=== PATIENT | female | born 1985 | race Caucasian/White ===

== ENCOUNTER 2020-03-03 19:08 | Emergency (ER) | payer OTHER ==
[~2020-03-03] VITALS: Ht 152.4 cm; Wt 126.3 kg
--- NOTE | 2020-03-03 19:30 | PHYS DOC ---
Past History Past Medical History: No Pertinent History Past Surgical History: Alcohol Use: None General Adult EDM: Chief Complaint: HEADACHE HPI: HPI: Patient is a 34-year-old female at approximately 8 weeks gestational age by LMP with right-sided headache she describes as throbbing for the past 3 days. Patient states 3 days ago she had a slight headache and laid down for nap, when she woke up the headache was worse. Also complaining of nausea, vomiting, phot ophobia. Denies any history of headaches including with previous pregnancies. She also states she has had worse nausea and vomiting with this and also frequent urination. Denies any abdominal pain, cramping, dysuria, vaginal bleeding or discharge. Took Tylenol 4 hours prior to arrival and drink some caffeine with some improvement of the pain. Denies any vision changes, weakness, paresthesias Review of Systems: Review of Systems: Constitutional: Denies fever or chills Eyes: Denies change in visual acuity HENT: Denies nasal congestion or sore throat, denies ear pain, tinnitus, decreased hearing Respiratory: Denies cough or shortness of breath Cardiovascular: Denies chest pain or edema GI: Denies abdominal pain, bloody stools or diarrhea. But has had nausea and vomiting : Denies dysuria Musculoskeletal: Denies back pain or joint pain Integument: Denies rash Neurologic: Right-sided throbbing headache, but denies focal weakness or sensory changes Endocrine: Denies polyuria or polydipsia Lymphatic: Denies swollen glands Psychiatric: Denies depression or anxiety Current Medications: Current Meds: Current Medications Medications (Trade) Dose Ordered Sig/Judith Start Time Stop Time Status Last Admin Dose Admin Diphenhydramine HCl (Benadryl) 50 mg 1X ONCE 03/03/20 19:30 03/03/20 19:31 UNV Prochlorperazine Edisylate (Compazine) 10 mg 1X ONCE 03/03/20 19:30 03/03/20 19:31 UNV Allergies: Allergies: Allergies Coded Allergies Type Severity Reaction Last Updated Verified Penicillins Allergy Unknown 03/03/20 Yes Physical Exam: PE: Constitutional: Well developed, well nourished, mild distress distress, non- toxic appearance. [] HENT: Normocephalic, atraumatic, bilateral external ears normal, oropharynx moist, no oral exudates, nose normal. [] No tenderness over sinuses Eyes: PERRLA, EOMI, conjunctiva normal, no discharge. [] Neck: Normal range of motion, no tenderness, supple, no stridor. [] Cardiovascular:Heart rate regular rhythm, no murmur [] Lungs & Thorax: Bilateral breath sounds clear to auscultation [] Abdomen: Bowel sounds normal, soft, no tenderness, no masses, no pulsatile masses. [] Skin: Warm, dry, no erythema, no rash. [] Back: No tenderness, no CVA tenderness. [] Extremities: No tenderness, no cyanosis, no clubbing, ROM intact, no edema. [] Neurologic: Alert and oriented X 3, normal motor function, normal sensory function, no focal deficits noted. [] Psychologic: Affect normal, judgement normal, mood normal. [] Current Patient Data: Vital Signs: Vital Signs Date Time Temp Pulse Resp B/P (MAP) Pulse Ox O2 Delivery O2 Flow Rate FiO2 03/03/20 19:10 98.2 76 20 148/105 (119) 100 Room Air EKG: EKG: [] Radiology/Procedures: Radiology/Procedures: CT scan of the head without contrast 03/03/2020 Clinical History: New right-sided headache for 3 days. Technique: Unenhanced, contiguous, 5 mm axial sections were obtained through the head. One or more of the following individualized dose reduction techniques were utilized for this study: 1. Automated exposure control. 2. Adjustment of the mA and/or kV according to patient size. 3. Use of iterative reconstruction technique. Findings: The ventricles and sulci are within normal limits in size and configuration. No area of abnormal attenuation is seen involving the brain parenchyma. No extra-axial fluid collection is noted. No skull fracture is seen. Impression: Negative study.[] Heart Score: Risk Factors: Risk Factors: DM, Current or recent (<one month) smoker, HTN, HLP, family history of CAD, obesity. Risk Scores: Score 0 - 3: 2.5% MACE over next 6 weeks - Discharge Home Score 4 - 6: 20.3% MACE over next 6 weeks - Admit for Clinical Observation Score 7 - 10: 72.7% MACE over next 6 weeks - Early Invasive Strategies Course & Med Decision Making: Course & Med Decision Making Pertinent Labs and Imaging studies reviewed. (See chart for details) Patient feeling much better after medications. Mild hypokalemia, will give 1 dose of potassium emergency department instructed patient to increase potassium in her diet. [] Amina Disclaimer: Amina Disclaimer: This electronic medical record was generated, in whole or in part, using a voice recognition dictation system. Departure Departure: Impression: Primary Impression: Migraine headache Additional Impression: Hypokalemia Disposition: 01 DC HOME SELF CARE/HOMELESS Condition: IMPROVED Referrals: PCP,UNKNOWN (PCP) Patient Instructions: Migraine Headache Scripts Butalb/Acetaminophen/Caffeine ([id number] [id number]) 1 Each Tablet 1 EACH PO PRN Q6-8HRS PRN for MIGRAINE HEADACHE for 5 Days, #10 TAB Prov: CHRIS PONCE MD 03/03/20 Ondansetron (ONDANSETRON ODT) 4 Mg Tab.rapdis 1 TAB PO PRN Q6-8HRS for nausea for 5 Days, #16 TAB Prov: CHRIS PONCE MD 03/03/20 CHRIS PONCE MD Mar 03, 2020 19:30
[2020-03-03] MEDS ORDERED: PROCHLORPERAZINE 10 MG/2 ML VIAL. IV ONE (19:45)
[2020-03-03] MEDS ORDERED: diphenhydrAMINE 50 MG/ML VIAL IVP ONE (19:45)
[2020-03-03] MEDS ORDERED: IV NORMAL SALINE 1,000ML 1,000 ML IV ONE (19:45)
--- NOTE | 2020-03-03 19:56 | RAD ---
CT scan of the head without contrast 03/03/2020 Clinical History: New right-sided headache for 3 days. Technique: Unenhanced, contiguous, 5 mm axial sections were obtained through the head. One or more of the following individualized dose reduction techniques were utilized for this study: 1. Automated exposure control. 2. Adjustment of the mA and/or kV according to patient size. 3. Use of iterative reconstruction technique. Findings: The ventricles and sulci are within normal limits in size and configuration. No area of abnormal attenuation is seen involving the brain parenchyma. No extra-axial fluid collection is noted. No skull fracture is seen. Impression: Negative study. Electronically signed by: Jude Holliday MD (03/03/2020 7:53 PM) [id number]
[2020-03-03 19:57] LABS: BASO # 0.1 x10^3/uL (0.0-0.2); BASO % 2 % (0-3); EOS # 0.1 x10^3/uL (0.0-0.7); EOS % 1 % (0-3); HEMATOCRIT 41.3 % (36.0-47.0); HEMOGLOBIN 13.7 g/dL (12.0-15.5); LYMPH # 2.8 x10^3/uL (1.0-4.8); LYMPH % 28 % (24-48); MEAN CORPUSCULAR HEMOGLOBIN 30 pg (25-35); MEAN CORPUSCULAR HGB CONC 33 g/dL (31-37); MEAN CORPUSCULAR VOLUME 89 fL (79-100); MONO # 0.6 x10^3/uL (0.0-1.1); MONO % 6 % (0-9); NEUT # 6.4 x10^3uL (1.8-7.7); NEUT % 65 % (31-73); PLATELET COUNT 340 x10^3/uL (140-400); RED BLOOD COUNT 4.63 x10^6/uL (3.50-5.40); RED CELL DISTRIBUTION WIDTH 13.1 % (11.5-14.5)
[2020-03-03 19:58] LABS: CALCIUM 9.4 mg/dL (8.5-10.1); CREATININE 0.7 mg/dL (0.6-1.0); GFR 94.7; POTASSIUM 3.2 mmol/L (3.5-5.1)
[2020-03-03 20:04] LABS: ALBUMIN 3.8 g/dL (3.4-5.0); ALBUMIN/GLOBULIN RATIO 0.8 (1.0-1.7); TOTAL BILIRUBIN 0.4 mg/dL (0.2-1.0); TOTAL PROTEIN 8.4 g/dL (6.4-8.2)
[2020-03-03 20:07] LABS: CLARITY,URINE CLEAR; COLOR,URINE YELLOW; GLUCOSE,URINE NEG (NEG)
[2020-03-03 20:08] LABS: BACTERIA,URINE 0 /HPF (0-FEW); BILIRUBIN,URINE NEG (NEG); NITRITE,URINE NEG (NEG); RBC,URINE 0 /HPF (0-2); WBC,URINE 0 /HPF (0-4)
[2020-03-03] MEDS ORDERED: ONDA4TAB12 PO (20:33)
[2020-03-03] MEDS ORDERED: BUTA1TAB23 PO (20:33)
[2020-03-03 20:44] VITALS: BP 115/81
[2020-03-03] MEDS ORDERED: POTASSIUM CHLORIDE 20 MEQ TABLET.ER. PO ONE (20:45)
== END 2020-03-03 20:48 | disposition home or self-care (01) ==
LOC: ER 19:08
DX: O26.891 Other specified pregnancy related conditions, first trimester (principal); G43.909 Migraine, unspecified, not intractable, without status migrainosus; O99.281 Endocrine, nutritional and metabolic diseases complicating pregnancy, first trimester; E87.6 Hypokalemia; Z3A.08 8 weeks gestation of pregnancy; Z88.0 Allergy status to penicillin
CPT/HCPCS: 36415; 70450; 80053; 81001; 81025; 83735; 85025; 96361; 96374; 96375; 99284; J0780; J1200; J7030

== ENCOUNTER 2020-08-25 17:57 | Emergency (ER) | payer OTHER ==
[~2020-08-25] VITALS: Ht 152.4 cm; Wt 59.6 kg
[~2020-08-25 17:57] MED LIST: BUTA1TAB23 PO; ONDA4TAB12 PO
[2020-08-25] MEDS ORDERED: ONDANSETRON PF 4 MG/2 ML VIAL. ONE (18:21)
[2020-08-25] MEDS ORDERED: ONDANSETRON PF 4 MG/2 ML VIAL. IVP ONE (18:30)
--- NOTE | 2020-08-25 18:30 | PHYS DOC ---
Past History Past Medical History: No Pertinent History Past Surgical History: Alcohol Use: None General Adult EDM: Chief Complaint: possible labor HPI: HPI: 34-year-old female who is 32 weeks presents with concern for amniotic fluid leakage. She has been having leakage of clear fluid and some cramping for the last 1-1/2 hours. They called the nurse line who told her to go to the emergency room. The patient is not having any bleeding. The cramps are interm ittent and not severe. She is planning to deliver at [facility]. They did not go there because the nurse line told him to go to the nearest ER. Patient denies fever or chills. Review of Systems: Review of Systems: Constitutional: . Denies fever or chills Eyes: Denies change in visual acuity HENT: Denies nasal congestion or sore throat Respiratory: Denies cough or shortness of breath Cardiovascular: Denies chest pain or edema GI: Intermittent abdominal cramping. Denies nausea, vomiting, bloody stools or diarrhea : Leaking of fluid from the vagina Musculoskeletal: Denies back pain or joint pain Integument: Denies rash Neurologic: Denies headache, focal weakness or sensory changes Endocrine: Denies polyuria or polydipsia Lymphatic: Denies swollen glands Psychiatric: Denies depression or anxiety Allergies: Allergies: Allergies Coded Allergies Type Severity Reaction Last Updated Verified Penicillins Allergy Intermediate 03/03/20 Yes Physical Exam: PE: Constitutional: Well developed, well nourished, no acute distress, non-toxic appearance. [] HENT: Normocephalic, atraumatic, bilateral external ears normal, oropharynx moist, no oral exudates, nose normal. [] Eyes: PERRLA, EOMI, conjunctiva normal, no discharge. [] Neck: Normal range of motion, no tenderness, supple, no stridor. [] Cardiovascular: Heart rate regular rhythm, no murmur [] Lungs & Thorax: Bilateral breath sounds clear to auscultation [] Abdomen: Gravid uterus. Bowel sounds normal, no tenderness, no masses, no pulsatile masses. [] Skin: Warm, dry, no erythema, no rash. [] Back: No tenderness, no CVA tenderness. [] Extremities: No tenderness, no cyanosis, no clubbing, ROM intact, no edema. [] Neurologic: Alert and oriented X 3, normal motor function, normal sensory function, no focal deficits noted. [] Psychologic: Affect normal, judgement normal, mood normal. [] EKG: EKG: [] Radiology/Procedures: Radiology/Procedures: [] Impressions: Exam: Ultrasound OB limited Indication: Vaginal fluid leak, 32 weeks, cramping Technique: Real-time grayscale and color Doppler images of the pelvis were obtained by the department clinical analyst. Comparisons: None FINDINGS: Within the uterus there is a single live intrauterine gestation with heart rate measuring 131 bpm. Fetus is in cephalic position. measurements as follows: BPD: 8.0 corresponding to 32 weeks 1 day Head circumference: 30.1 corresponding to 33 weeks 2 days Abdominal circumference: 27.2 cm corresponding to 31 weeks 2 days Femur length: 6.3 cm corresponding to 32 weeks 4 days Estimated weight: 1870 g with a sonographic gestational age of 32 weeks 2 days Placenta is fundal and appears normal. LUKE measured at 8.6 cm. Cervix is seen and measures approximately 4.4 cm. IMPRESSION: 1. Single live intrauterine gestation with measurements as described above. 2. LUKE measured at 8.6 cm. 3. Cervix appears long and closed on transabdominal imaging measuring 4.4 cm. Electronically signed by: Maxx Reina MD (08/25/2020 9:35 PM) [facility] DICTATED AND SIGNED BY: MAXX REINA MD DATE: 08/25/202132 CC: PEDRO PABLO BONILLA DO; PCP,UNKNOWN ~MTH0 0 Heart Score: C/O Chest Pain: N/A Risk Factors: Risk Factors: DM, Current or recent (<one month) smoker, HTN, HLP, family history of CAD, obesity. Risk Scores: Score 0 - 3: 2.5% MACE over next 6 weeks - Discharge Home Score 4 - 6: 20.3% MACE over next 6 weeks - Admit for Clinical Observation Score 7 - 10: 72.7% MACE over next 6 weeks - Early Invasive Strategies Course & Med Decision Making: Course & Med Decision Making Pertinent Labs and Imaging studies reviewed. (See chart for details) The patient's labs are unremarkable except for some mild anemia. Her urinalysis is negative for infection. We did 2 different nitrazine paper test and they were both negative. This does not appear to be amniotic fluid. Ultrasound does not show a significant complication. See official read for more details. The patient is feeling better. Her wet prep is negative. She is stable for discharge at this time. [] Dragon Disclaimer: Dragon Disclaimer: This electronic medical record was generated, in whole or in part, using a voice recognition dictation system. Departure Departure: Impression: Primary Impression: Qualified Codes: Z3A.32 - 32 weeks gestation of Additional Impression: Vaginal discharge during in third trimester Disposition: 02 SHORT TERM HOSPITAL Condition: STABLE Referrals: PCP,UNKNOWN (PCP) Patient Instructions: - Third Trimester, [id number] PEDRO PABLO BONILLA DO August 25, 2020 18:30
[2020-08-25] MEDS ORDERED: IV NORMAL SALINE 1,000ML 1,000 ML IV ONE (20:00)
[2020-08-25 20:03] LABS: CALCIUM 9.2 mg/dL (8.5-10.1); CREATININE 0.6 mg/dL (0.6-1.0); GFR 113.1; POTASSIUM 3.6 mmol/L (3.5-5.1)
[2020-08-25 20:09] LABS: ALBUMIN 2.7 g/dL (3.4-5.0); ALBUMIN/GLOBULIN RATIO 0.6 (1.0-1.7); BASO # 0.1 x10^3/uL (0.0-0.2); BASO % 1 % (0-3); EOS # 0.1 x10^3/uL (0.0-0.7); EOS % 1 % (0-3); HEMATOCRIT 32.5 % (36.0-47.0); HEMOGLOBIN 10.7 g/dL (12.0-15.5); LYMPH # 2.1 x10^3/uL (1.0-4.8); LYMPH % 21 % (24-48); MEAN CORPUSCULAR HEMOGLOBIN 28 pg (25-35); MEAN CORPUSCULAR HGB CONC 33 g/dL (31-37); MEAN CORPUSCULAR VOLUME 85 fL (79-100); MONO # 0.6 x10^3/uL (0.0-1.1); MONO % 6 % (0-9); NEUT # 7.1 x10^3uL (1.8-7.7); NEUT % 72 % (31-73); PLATELET COUNT 257 x10^3/uL (140-400); RED CELL DISTRIBUTION WIDTH 15.5 % (11.5-14.5); TOTAL BILIRUBIN 0.3 mg/dL (0.2-1.0); TOTAL PROTEIN 7.5 g/dL (6.4-8.2)
[2020-08-25 20:23] LABS: BACTERIA,URINE MOD /HPF (0-FEW); BILIRUBIN,URINE NEG (NEG); CLARITY,URINE HAZY; COLOR,URINE YELLOW; GLUCOSE,URINE NEG (NEG); NITRITE,URINE NEG (NEG); RBC,URINE 0 /HPF (0-2); SQUAMOUS EPITHELIAL CELL,UR MOD /LPF; UROBILINOGEN,URINE 0.2 mg/dL (0.2 mg/dL)
--- NOTE | 2020-08-25 21:37 | RAD ---
Exam: Ultrasound OB limited Indication: Vaginal fluid leak, 32 weeks, cramping Technique: Real-time grayscale and color Doppler images of the pelvis were obtained by the department pharmacy informatics specialist. Comparisons: None FINDINGS: Within the uterus there is a single live intrauterine gestation with heart rate measuring 131 b pm. Fetus is in cephalic position. measurements as follows: BPD: 8.0 corresponding to 32 weeks 1 day Head circumference: 30.1 corresponding to 33 weeks 2 days Abdominal circumference: 27.2 cm corresponding to 31 weeks 2 days Femur length: 6.3 cm corresponding to 32 weeks 4 days Estimated weight: 1870 g with a sonographic gestational age of 32 weeks 2 days Placenta is fundal and appears normal. LUKE measured at 8.6 cm. Cervix is seen and measures approximately 4.4 cm. IMPRESSION: 1. Single live intrauterine gestation with measurements as described above. 2. LUKE measured at 8.6 cm. 3. Cervix appears long and closed on transabdominal imaging measuring 4.4 cm. Electronically signed by: Susie Muhammad MD (08/25/2020 9:35 PM) EVER
[2020-08-25 21:40] VITALS: BP 124/76
== END 2020-08-25 22:10 | disposition home or self-care (01) ==
LOC: ER 17:57
DX: O42.90 Premature rupture of membranes, unspecified as to length of time between rupture and onset of labor, unspecified weeks of gestation (principal); N89.8 Other specified noninflammatory disorders of vagina; Z3A.32 32 weeks gestation of pregnancy; Z88.0 Allergy status to penicillin
CPT/HCPCS: 36415; 76815; 80053; 81001; 85025; 87086; 96361; 96374; 99285; J2405; J7030; Q0111

== ENCOUNTER 2021-05-15 14:26 | Emergency (ER) | payer OTHER ==
[~2021-05-15] VITALS: Ht 152.4 cm; Wt 62.6 kg
[2021-05-15] MEDS ORDERED: ONDANSETRON PF 4 MG/2 ML VIAL. IVP ONE (15:00)
[2021-05-15] MEDS ORDERED: diphenhydrAMINE 50 MG/ML VIAL IVP ONE (15:00)
[2021-05-15] MEDS ORDERED: SUMAtriptan SUCC 6 MG/0.5 ML VIAL SQ ONE (15:00)
[2021-05-15] MEDS ORDERED: KETOROLAC 15 MG/ML VIAL. IVP ONE (15:00)
--- NOTE | 2021-05-15 15:07 | RAD ---
EXAM: CHEST 1 VIEW History: Elevated blood pressure COMPARISON: None available. TECHNIQUE: Single portable radiograph of the chest FINDINGS: The cardiac silhouette is unremarkable. The lungs are clear bilaterally. The costophrenic sulci are clear and well demarcated. . IMPRESSION: No radiographic evidence of an acute cardiopulmonary process. Electronically signed by: Art Rivera MD (05/15/2021 3:04 PM) [id number]
[2021-05-15 15:37] LABS: BASO # 0.1 x10^3/uL (0.0-0.2); BASO % 1 % (0-3); EOS % 0 % (0-3); HEMOGLOBIN 10.7 g/dL (12.0-15.5); LYMPH # 1.6 x10^3/uL (1.0-4.8); LYMPH % 18 % (24-48); MEAN CORPUSCULAR HEMOGLOBIN 24 pg (25-35); MEAN CORPUSCULAR HGB CONC 31 g/dL (31-37); MEAN CORPUSCULAR VOLUME 78 fL (79-100); MONO # 0.4 x10^3/uL (0.0-1.1); MONO % 5 % (0-9); NEUT # 6.9 x10^3uL (1.8-7.7); NEUT % 77 % (31-73); PLATELET COUNT 414 x10^3/uL (140-400); RED CELL DISTRIBUTION WIDTH 19.4 % (11.5-14.5); WHITE BLOOD COUNT 8.9 x10^3/uL (4.0-11.0)
[2021-05-15 15:46] LABS: CALCIUM 8.9 mg/dL (8.5-10.1); CREATININE 0.6 mg/dL (0.6-1.0); GFR 112.5
[2021-05-15 15:52] LABS: ALBUMIN 3.9 g/dL (3.4-5.0); ALBUMIN/GLOBULIN RATIO 0.9 (1.0-1.7); TOTAL BILIRUBIN 0.5 mg/dL (0.2-1.0); TOTAL PROTEIN 8.1 g/dL (6.4-8.2)
[2021-05-15 15:53] LABS: BARBITURATES NEG (NEG); BENZODIAZEPINES NEG (NEG); CANNABINOIDS NEG (NEG); COCAINE NEG (NEG); METHADONE NEG (NEG); OPIATES NEG (NEG); PHENCYCLIDINE NEG (NEG)
--- NOTE | 2021-05-15 15:58 | PHYS DOC ---
Past History Past Medical History: DVT Additional Past Medical Histor: Protein C deficiency Past Surgical History: , Other Additional Past Surgical Histo: DVT REMOVAL RIGHT LEG Alcohol Use: Occasionally General Adult EDM: Chief Complaint: HEADACHE HPI: HPI: Patient is a 35 year old female with PMHx of migraines and protein c deficiency who presents with migraine that began yesterday. She states she also has "tingling" in her arms and mouth, which preceded the migraine. Patient denies chest pain, palpitations, edema, focal weakness. 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 She used to take anticoagulants, but was instructed to stop taking them February 2021. Patient is to have a reevaluation with hematology in August. Review of Systems: Review of Systems: Constitutional: Denies fever, chills or generalized weakness Eyes: Denies change in visual acuity, visual field deficits or discharge HENT: Denies ear pain, nasal congestion or sore throat Respiratory: Denies cough or shortness of breath Cardiovascular: See HPI GI: Denies abdominal pain, nausea, vomiting, bloody stools or diarrhea : Denies dysuria or hematuria Musculoskeletal: Denies back pain or joint pain Integument: Denies rash or other skin lesion Neurologic: See HPI Current Medications: Current Meds: Current Medications Medications (Trade) Dose Ordered Sig/Judith Start Time Stop Time Status Last Admin Dose Admin Diphenhydramine HCl (Benadryl) 25 mg 1X ONCE 05/15/21 15:00 05/15/21 15:02 DC 05/15/21 15:27 25 MG Ketorolac Tromethamine (Toradol 15mg Vial) 15 mg 1X ONCE 05/15/21 15:00 05/15/21 15:02 DC 05/15/21 15:28 15 MG Ondansetron HCl (Zofran) 4 mg 1X ONCE 05/15/21 15:00 05/15/21 15:02 DC 05/15/21 15:25 4 MG Sumatriptan Succinate (Imitrex) 6 mg 1X ONCE 05/15/21 15:00 05/15/21 15:02 DC 05/15/21 15:31 6 MG Allergies: Allergies: Allergies Coded Allergies Type Severity Reaction Last Updated Verified Penicillins Allergy Intermediate 03/03/20 Yes Physical Exam: PE: Constitutional: Well developed, well nourished, no acute distress, non-toxic appearance. HENT: Normocephalic, atraumatic, bilateral external ears normal, oropharynx moist, no oral exudates, nose normal. Eyes: PERRLA, EOMI, conjunctiva normal, no discharge. Neck: Normal range of motion, no stridor. Skin: Warm, dry, no erythema, no rash. Extremities: No tenderness, no cyanosis, no clubbing, ROM intact, no edema. Neurologic: Alert and oriented x4, sensory and motor function intact including great toe dorsiflexion and appeals writer strength, no focal deficits noted. Current Patient Data: Labs: Laboratory Tests Test 05/15/21 15:20 White Blood Count 8.9 x10^3/uL (4.0-11.0) Red Blood Count 4.50 x10^6/uL (3.50-5.40) Hemoglobin 10.7 g/dL (12.0-15.5) L Hematocrit 35.0 % (36.0-47.0) L Mean Corpuscular Volume 78 fL (79-100) L Mean Corpuscular Hemoglobin 24 pg (25-35) L Mean Corpuscular Hemoglobin Concent 31 g/dL (31-37) Red Cell Distribution Width 19.4 % (11.5-14.5) H Platelet Count 414 x10^3/uL (140-400) H Neutrophils (%) (Auto) 77 % (31-73) H Lymphocytes (%) (Auto) 18 % (24-48) L Monocytes (%) (Auto) 5 % (0-9) Eosinophils (%) (Auto) 0 % (0-3) Basophils (%) (Auto) 1 % (0-3) Neutrophils # (Auto) 6.9 x10^3uL (1.8-7.7) Lymphocytes # (Auto) 1.6 x10^3/uL (1.0-4.8) Monocytes # (Auto) 0.4 x10^3/uL (0.0-1.1) Eosinophils # (Auto) 0.0 x10^3/uL (0.0-0.7) Basophils # (Auto) 0.1 x10^3/uL (0.0-0.2) Vital Signs: Vital Signs Date Time Temp Pulse Resp B/P (MAP) Pulse Ox O2 Delivery O2 Flow Rate FiO2 05/15/21 15:58 86 20 189/117 (141) 98 Room Air 05/15/21 15:36 105 20 179/96 (123) 98 Room Air 05/15/21 15:29 95 20 156/105 (122) 100 Room Air 05/15/21 14:30 98.0 81 20 192/115 (140) 100 Room Air EKG: EKG: EKG Interpreted by Dr. Flores at 1531: Regular rate and rhythm 87 bpm with no ectopic beats. QT 374 ms/QTc 456 ms. No STEMI. Radiology/Procedures: Radiology/Procedures: PROCEDURE: CHEST AP ONLY EXAM: CHEST 1 VIEW History: Elevated blood pressure COMPARISON: None available. TECHNIQUE: Single portable radiograph of the chest FINDINGS: The cardiac silhouette is unremarkable. The lungs are clear bilaterally. The costophrenic sulci are clear and well demarcated. . IMPRESSION: No radiographic evidence of an acute cardiopulmonary process. Electronically signed by: Art Rivera MD (05/15/2021 3:04 PM) [id number] PROCEDURE: CT ANGIOGRAPHY CHEST CTA scan of the Chest with Contrast (Pulmonary Embolism protocol) 05/15/2021 Clinical History: Chest pressure. Tachycardia. Elevated blood pressure. Technique: After the intravenous administration of 100 cc of Omnipaque 350, contiguous, 0.625 mm axial sections were obtained through the chest. 2 mm axial and 3D MIP coronal and sagittal reconstructed images were obtained. One or more of the following individualized dose reduction techniques were utilized for this study: 1. Automated exposure control. 2. Adjustment of the mA and/or kV according to patient size. 3. Use of iterative reconstruction technique. Findings: No filling defect is seen within the major branches of either pulmonary artery. There is no CT evidence of pulmonary embolism. The heart is normal in size. The thoracic aorta is tortuous but tapers normally. Partially calcified right hilar and mediastinal lymph nodes are seen which measure 5 mm to 2 cm in size. Minimal dependent subsegmental atelectasis is seen involving both lungs. Multiple calcified granulomas are seen scattered throughout both lungs. These measure 2 mm to 1 cm in size. No area of consolidation, pleural effusion or pneumothorax is seen. Images through the upper abdomen demonstrate small calcified gallstones within the gallbladder. Impression: There is no CT evidence of pulmonary embolism. Electronically signed by: Jude Holliday MD (05/15/2021 4:48 PM) [id number] Heart Score: C/O Chest Pain: No Course & Med Decision Making: Course & Med Decision Making Pertinent Labs and Imaging studies reviewed. (See chart for details) Patient is a 35-year-old female who presents for migraine. She also has elevated blood pressure reading in the department. Work-up will include labs, chest x-ray, EKG. Patient will be treated with Toradol, sumatriptan, Benadryl, Zofran. On reevaluation, patient states that her head feels much better, however she is complaining of chest pressure. She also remains to be hypertensive. CT angio chest and coags added to work-up. There is no evidence of pulmonary embolism or endorgan damage on work-up today, however D-dimer is elevated. Discussed findings with the patient. I advised her to revisit her electrical logging engineer in the next week as well as schedule an appointment with her primary care doctor. During this time, she should keep a blood pressure log to take with her to her appointment. Return precautions were provided. Patient understands and is agreeable to discharge plan. Dragon Disclaimer: DragMoxie Disclaimer: This electronic medical record was generated, in whole or in part, using a voice recognition dictation system. Departure Departure: Impression: Primary Impression: Migraine with aura and without status migrainosus, not intractable Additional Impressions: Elevated blood pressure reading Elevated d-dimer Hx of protein C deficiency Disposition: 01 HOME / SELF CARE / HOMELESS Condition: IMPROVED Referrals: YANNICK MORALES MD (PCP) JOEL KILLIAN MD Patient Instructions: Hypertension, [id number], Migraine Headache, [id number] Additional Instructions: EMERGENCY DEPARTMENT GENERAL DISCHARGE INSTRUCTIONS Thank you for coming to [facility] (ED) today and trusting us with you care. We trust that you had a positive experience in our Emergency Department. If you wish to speak to the department management, you may call the director at [phone]. YOUR FOLLOW UP INSTRUCTIONS ARE FOLLOWS: 1. Follow up with your primary care doctor. If you do not have a primary doctor, please ask for a resource list of physicians or clinics that may be able to assist you with follow up care. - Keep a blood pressure log to take with you to your appointment. Be sure to check your blood pressure around the same time of day each time (example: 30 mins after waking up, before coffee & 30 mins before bed). - Schedule a follow up appointment with hematology in the next week. 2. The emergency provider has interpreted your imaging studies, if any were ordered. The radiology project specialist also reviewed them. If there is a change in the findings, you will be notified in 48 hours when at all possible. 3. If a lab test or culture has been done, your results will be reviewed and you will be notified if you need a change in treatment. 4. Follow instructions verbalized to you and refer to the printouts if needed. ADDITIONAL INSTRUCTIONS AND INFORMATION: 1. Your care today has been supervised by a physician who is specially trained in emergency care. Many problems require more than one evaluation for a complet e diagnosis and treatment. We recommend that you schedule your follow up appointment as recommended to ensure complete treatment of you illness or injury. If you are unable to obtain follow up care and continue to have a problem, or if your condition worsens, we recommend that you return to the ED. 2. We are not able to safely determine your condition over the phone nor are we able to give sound medical advice over the phone. For these safety reasons, if you call for medical advice we will ask you to come to the ED for further evaluation. 3. If you have any questions regarding these discharge instructions please call the ED at [phone]. SAFETY INFORMATION: In the interest of safety, wellness, and injury prevention; we encourage you to wear your seat belt, if you smoke; quite smoking, and we encourage family to use a protective helmet for bicycling and other sporting events that present an increased risk for head injury. IF YOUR SYMPTOMS WORSEN OR NEW SYMPTOMS DEVELOP, OR YOU HAVE CONCERNS ABOUT YOUR CONDITION; OR IF YOUR CONDITION WORSENS WHILE YOU ARE WAITING FOR YOUR FOLLOW UP APPOINTMENT; EITHER CONTACT YOUR PRIMARY CARE DOCTOR, THE PHYSICIAN WHOSE NAME AND NUMBER YOU WERE GIVEN, OR RETURN TO THE ED IMMEDIATELY. Scripts Sumatriptan Succinate (IMITREX) 50 Mg Tablet 1 TAB PO UD for migraine, #9 TAB Take 1 tablet by mouth for migraine. May repeat dose 1 time per day. Do not exceed 2 tablets in 1 day. Prov: BAUDILIO JOSUE 05/15/21 BAUDILIO JOSUE May 15, 2021 15:58
[2021-05-15 16:00] LABS: AMPHETAMINE/METHAMPHETAMINE NEG (NEG)
[2021-05-15 16:15] LABS: BILIRUBIN,URINE NEG (NEG); CLARITY,URINE CLEAR; COLOR,URINE YELLOW; GLUCOSE,URINE NEG (NEG)
[2021-05-15] MEDS ORDERED: CONTRAST GIVEN. MC PRN (16:15)
[2021-05-15] MEDS ORDERED: IOHEXOL 350 MG/ML 100 ML VIAL. IV ONE (16:15)
[2021-05-15 16:16] LABS: BACTERIA,URINE FEW /HPF (0-FEW); NITRITE,URINE NEG (NEG); RBC,URINE 0 /HPF (0-2); SQUAMOUS EPITHELIAL CELL,UR FEW /LPF; UROBILINOGEN,URINE 0.2 mg/dL (0.2 mg/dL); WBC,URINE OCC /HPF (0-4)
[2021-05-15 16:46] VITALS: BP 175/97
--- NOTE | 2021-05-15 16:47 | EKG ---
[address] [address] Test Date: 2021-05-15 Test Time: 15:28:03 Pat Name: BENIGNO JIDepartment: Room: Gender: F Community Manager: DALIA : 1985 Requested By: BAUDILIO JOSUE Order Number: [id number] Reading MD: Measurements Intervals [place] Rate: 87 P: 41 VA: 146 QRS: 6 QRSD: 78 T: 14 QT: 374 QTc: 456 Interpretive Statements SINUS RHYTHM NORMAL ECG RI6.02 No previous ECG available for comparison
--- NOTE | 2021-05-15 16:51 | RAD ---
CTA scan of the Chest with Contrast (Pulmonary Embolism protocol) 05/15/2021 Clinical History: Chest pressure. Tachycardia. Elevated blood pressure. Technique: After the intravenous administration of 100 cc of Omnipaque 350, contiguous, 0.625 mm axia l sections were obtained through the chest. 2 mm axial and 3D MIP coronal and sagittal reconstructed images were obtained. One or more of the following individualized dose reduction techniques were utilized for this study: 1. Automated exposure control. 2. Adjustment of the mA and/or kV according to patient size. 3. Use of iterative reconstruction technique. Findings: No filling defect is seen within the major branches of either pulmonary artery. There is n o CT evidence of pulmonary embolism. The heart is normal in size. The thoracic aorta is tortuous but tapers normally. Partially calcified right hilar and mediastinal lymph nodes are seen which measure 5 mm to 2 cm in size. Minimal dependent subsegmental atelectasis is seen involving both lungs. Multiple calcified granuloma s are seen scattered throughout both lungs. These measure 2 mm to 1 cm in size. No area of consolidat ion, pleural effusion or pneumothorax is seen. Images through the upper abdomen demonstrate small calcified gallstones within the gallbladder. Impression: There is no CT evidence of pulmonary embolism. Electronically signed by: Jude Holliday MD (05/15/2021 4:48 PM) [id number]
[2021-05-15] MEDS ORDERED: SUMA50TA3 PO (17:13)
== END 2021-05-15 17:10 | disposition home or self-care (01) ==
LOC: ER 14:26
DX: G43.909 Migraine, unspecified, not intractable, without status migrainosus (principal); R03.0 Elevated blood-pressure reading, without diagnosis of hypertension; R79.1 Abnormal coagulation profile; Z86.718 Personal history of other venous thrombosis and embolism; Z88.0 Allergy status to penicillin
CPT/HCPCS: 36415; 71045; 71275; 80053; 80307; 81001; 84484; 85025; 85379; 85610; 85730; 93005; 96372; 96374; 96375; 99285; J1200; J1885; J2405; J3030; Q9967